=== PATIENT | male | born 1955 | race Caucasian/White ===

== ENCOUNTER → 2016-10-30 | Outpatient (CLI) | payer BC ==
--- NOTE | 2016-10-30 12:14 | MRI ---
HISTORY: Left persistent knee pain. Possible meniscal Study: Tear. MRI of the left knee without without contrast. Comparison: None available. Technique: Multiplanar multisequence MRI of the left knee was obtained utilizing standard [facility] protocol. Findings: The anterior and posterior cruciate ligaments are intact There is a nondisplaced tear within the posterior horn of the medial meniscus. The remaining medial meniscus appears intact. There is a complex tear of the body and posterior horn of the lateral menis cus with portions that are flipped into the intercondylar notch. The medial femoral condylar cartila ge surface demonstrates mild chondromalacia. The lateral femoral condylar cartilage surface demonstr ates mild/moderate chondromalacia. The patellofemoral cartilage surfaces demonstrates mild chondroma lacia. The collateral ligaments are intact. The patellar and quadriceps tendons are intact. The bone marrow signal is normal. Small knee effusion. IMPRESSION: 1. Complex tear of the body and posterior horn of the lateral meniscus with portions that are flippe d into the intercondylar notch. 2. Nondisplaced tear of the posterior horn of the medial meniscus. 3. Tricompartmental chondromalacia. Reported By:
== END | disposition home or self-care (01) ==
LOC: RAD 08:49
PROVIDERS: ATTEND Orthopaedic Surgery
DX: M25.562 Pain in left knee (principal); S83.282A Other tear of lateral meniscus, current injury, left knee, initial encounter; S83.242A Other tear of medial meniscus, current injury, left knee, initial encounter; X58.XXXA Exposure to other specified factors, initial encounter
CPT/HCPCS: 73721